=== PATIENT | female | born 1985 | race Caucasian/White ===

== ENCOUNTER 2020-02-10 15:27 | Emergency (ER) | payer OTHER, SELFPAY ==
--- NOTE | 2020-02-10 15:37 | ED.GENADULT ---
HPI - General Adult General Chief complaint: Skin/Abscess/Foreign Body Stated complaint: Cyst on back Time Seen by Provider: 02/10/20 15:37 Source: patient Mode of arrival: ambulatory Limitations: no limitations History of Present Illness HPI narrative: 34-year-old female patient presents to the [facility] with complaints of a wound to the left side of the back. Patient states she has had a cyst to this area for couple of years now however about a week ago she got hit with a softball and now having increased pain and pressure to the area. Denies any fevers, body aches or chills. Related Data Allergies Allergy/AdvReac Type Severity Reaction Status Date / Time No Known Allergies Allergy Verified 02/10/20 15:30 Review of Systems Review of Systems: Narrative: CONSTITUTIONAL: Denies fever, chills, or sweats. EYES: Denies visual changes, redness, or discharge. ENT: Denies rhinorrhea, congestion, sore throat, or otalgia. CARDIOVASCULAR: Denies chest pain, palpitations, or edema. RESPIRATORY: Denies cough or dyspnea. GASTROINTESTINAL: Denies abdominal pain, nausea, vomiting, or diarrhea. GENITOURINARY: Denies dysuria or hematuria. SKIN: Denies rash or itching. Positive wound to left upper back x1 week MUSCULOSKELETAL: Denies back pain, joint pain, or myalgia. NEUROLOGIC: Denies headache, numbness, or weakness. PSYCHIATRIC: Denies anxiety or depression. PMFSH Comments At the time of my signature I agree with nursing past medical history, surgical, social, and family history. There is no relevant family history pertinent to the presenting complaint. Exam Narrative: Exam Narrative: GENERAL: Well-appearing, well-nourished, and in no acute distress. HEAD: Normocephalic, atraumatic. EYES: PERRLA and EOMI. ENT: Nares clear, no rhinorrhea or epistaxis. Mucous membranes moist. NECK: Supple. No lymphadenopathy CHEST: Clear to auscultation. No respiratory distress. HEART: Regular rate and rhythm. No murmur heard. Normal peripheral pulses. ABDOMEN: Soft, nontender, nondistended, normal active bowel sounds. EXTREMITIES: Normal range of motion. No edema. SKIN: Warm, dry, no rash. Patient has approximately 3.5 cm cyst area to left upper back. Slightly warm and very slight fluctuant center. NEURO: No focal deficits. Alert and oriented x3. Course Vital Signs Vital signs: Vital Signs Temperature 37.3 C 02/10/20 15:38 Pulse Rate 70 02/10/20 15:38 Respiratory Rate 16 02/10/20 15:38 Blood Pressure 143/84 H 02/10/20 15:38 Pulse Oximetry 99 02/10/20 15:38 Temperature 37.3 C 02/10/20 15:38 Pulse Rate 70 02/10/20 15:38 Respiratory Rate 16 02/10/20 15:38 Blood Pressure 143/84 H 02/10/20 15:38 Pulse Oximetry 99 02/10/20 15:38 Vital signs reviewed. The patient has been informed that they may have pre-hypertension or Hypertension based on a BP reading in the department. I recommend that the patient call the primary care provider listed on their discharge instructions or a physician of their choice this week to arrange follow up for further evaluation of possible pre-hypertension or Hypertension Procedures Abscess I/D back: Date of Incision: 02/10/20 Time of Incision: 16:09 Side (if applicable): left Sedation/analgesia: none Local Anesthetic: lidocaine 1% Amount of anesthesia used (mL): 1 Technique: incised with #11 blade Irrigation: Yes Packing used?: none I&D Results: Pus Abcess I&D Additional Comments: The procedure was explained and verbal consent is obtained. The wound was anesthetized with 1ml of 1% lidocaine with good anesthesia. Sterile drape and prep are done. The fluctuant center was incised with #11 blade scalpel. A moderate amount of exudate was expressed. The wound was probed for loculated area and irrigated with normal saline. Wound was left open. Dressing was applied. The patient tolerated the procedure well. Medical Decision M
[2020-02-10 15:38] VITALS: BP 143/84; PULSE 70; RESP 16; TEMP 37.3; O2SAT 99
--- NOTE | 2020-02-10 16:00 | PC.NURSE ---
manpower development specialist manager in to do i and d at [phone]
== END 2020-02-10 16:17 | disposition home or self-care (01) ==
PROVIDERS: Emergency Provider Nurse Practitioner Family
DX: L02.212 Cutaneous abscess of back [any part, except buttock and flank] (principal)
CPT/HCPCS: 10060; 87070; 87075; 87205; 99203; G0463

== ENCOUNTER 2023-01-15 13:17 | Emergency (ER) | payer OTHER, SELFPAY | END 2023-01-15 14:13 | disposition home or self-care (01) | PROVIDERS: Emergency Provider Nurse Practitioner Family | DX: S71.111A Laceration without foreign body, right thigh, initial encounter (principal); W26.8XXA Contact with other sharp object(s), not elsewhere classified, initial encounter; Z23 Encounter for immunization | CPT/HCPCS: 12001; 90471; 90714; 99212; G0463 ==

== ENCOUNTER 2023-11-11 02:01 | Emergency (ER) | payer OTHER, SELFPAY ==
--- NOTE | ~2023-11-11 | CT_ITS ---
CT of the Abdomen and Pelvis: Indication: Abdominal pain Technique: 2.5 mm axial scans were obtained through the abdomen and pelvis following intravenous adm inistration of 100 cc of Omnipaque 350. Dose reduction technique was used on this scan by utilizing a utomated exposure control and iterative reconstruction technique. The dose-length product (DLP) was 1 065.04 mGy-cm. Findings: Scans through the lung bases are unremarkable. The liver, spleen, pancreas, adrenals and kidneys are within normal limits. Probable mild gallbladder wall thickening, nonspecific. No evidence of aortic aneurysm. No lymphadenopathy. No bowel obstruction or bowel wall thickening. There is no evidence to suggest acute appendicitis. Images through the pelvis were performed. Urinary bladder unremarkable. No adnexal mass evident. Trac e pelvic ascites present. Impression: Mild gallbladder wall thickening, nonspecific. Consider ultrasound to better assess for underlying ga llstones/acute cholecystitis. Trace pelvic ascites, nonspecific. Reviewed, dictated and finalized at [facility]. Impression: Mild gallbladder wall thickening, nonspecific. Consider ultrasound to better as sess for underlying gallstones/acute cholecystitis. Trace pelvic ascites, nonspecific.
[2023-11-11] MEDS: ONDANSETRON INJ 4 MG/2 ML VIAL IV PUSH (03:13)
[2023-11-11] MEDS: MORPHINE SULFATE (*CRX) 4 MG/ML INJ IV PUSH (03:13)
[2023-11-11] MEDS: SODIUM CHLORIDE 0.9% IV 1,000 ML 999 ML IV CONT (03:13)
[2023-11-11 03:20] LABS: Basophils Percent Auto 0.2 % (0.2-1.2); Eosinophils Absolute Auto 0.1 K/mm3 (0-0.3); Eosinophils Percent Auto 1.3 % (0-4.4); Hematocrit 43.3 % (37.0-47.0); Hemoglobin 14.8 g/dL (12.0-15.0); Immature Granulocyte Absolute 0.03 K/mm3 (0.00-0.031); Immature Granulocyte Percent A 0.3 % (0-0.5); Lymphocytes Absolute Auto 2.63 K/mm3 (0.9-3.2); Lymphocytes Percent Auto 29.4 % (18.3-44.2); Mean Corpuscular HGB Conc 34.2 g/dl (32-36); Mean Corpuscular Hemoglobin 30.5 pg (26-34); Mean Corpuscular Volume 89.3 fl (80-100); Mean Platelet Volume 10.3 fl (7.4-10.4); Monocytes Absolute Auto 0.5 K/mm3 (0.1-0.6); Monocytes Percent Auto 5.8 % (2.6-8.5); Neutrophils Absolute Auto 5.6 K/mm3 (1.3-6.7); Platelet Count Result 204 k/mm3 (150-375); Red Blood Count 4.85 M/mm3 (4.2-5.4); Red Cell Distribution Width 11.8 % (11.5-14.5)
[2023-11-11 03:22] LABS: Appearance Urine Clear (Clear); Bilirubin Urine Negative (Negative); Blood Urine Negative (Negative); Color Urine Yellow (Yellow); Glucose Urine UA Negative (Negative); Ketones Urine Negative (Negative); Leukocyte Esterase Ur Negative LEU/UL (Negative); Nitrate Urine Negative (Negative); Protein Urine Negative (Negative); Specific Grav Ur 1.006 (1.001-1.035); Urobilinogen Urine 0.2 mg/dL (<2.0); pH Urine 7.5 (5.0-9.0)
[2023-11-11 03:29] LABS: Add Urine Microscopic? NO
[2023-11-11 03:37] LABS: Alanine Aminotransferase 25 U/L (6-35); Albumin Level 4.6 g/dL (3.5-5.1); Alkaline Phosphatase 65 U/L (38-126); Anion Gap 5 mmol/L (4-12); Aspartate Amino Transferase 29 U/L (14-36); Bilirubin,Total 0.8 mg/dL (0.2-1.3); Blood Urea Nitrogen 15 mg/dL (7-17); Calcium 10.2 mg/dL (8.4-10.2); Carbon Dioxide 25 mmol/L (22-30); Chloride 106 mmol/L (98-107); Estimated CRCL calculation 80 ml/min; Estimated Glomerular Filt Rate > 60; Glucose 90 mg/dL (65-110); Lipase 56 U/L (23-300); Potassium 4.5 mmol/L (3.4-5.0); Sodium 136 mmol/L (137-145)
[2023-11-11 04:18] VITALS: BP 128/87; PULSE 77; RESP 16; O2SAT 100
--- NOTE | 2023-11-11 04:18 | ED.GENADULT ---
HPI - General Adult General Chief complaint: Abdominal Pain Stated complaint: abdominal pain Time Seen by Provider: 11/11/23 02:47 History of Present Illness HPI narrative: Patient had troponin presents emergency department with chief complaint of abdominal pain. The patient reports she is having pain in the epigastric and right upper quadrant pain the patient reports she is having nausea and reports that she has not had any vomiting. The patient reports he has had several episodes of this before in the past but usually goes away on its own. Patient reports no prior upper abdominal surgery Related Data Allergies Allergy/AdvReac Type Severity Reaction Status Date / Time No Known Allergies Allergy Verified 11/11/23 02:05 Review of Systems Review of Systems: A 10 system review of systems was completed on the patient and is negative except for what is stated in the HPI. Nursing and ancillary documentation was reviewed. Exam Narrative: GENERAL: Well-appearing, well-nourished, and in no acute distress. HEAD: Normocephalic, atraumatic. EYES: PERRLA and EOMI. ENT: Nares clear, no rhinorrhea or epistaxis. Mucous membranes moist. NECK: Supple. CHEST: Clear to auscultation. No respiratory distress. HEART: Regular rate and rhythm. No murmur heard. Normal peripheral pulses. ABDOMEN: Soft, tenderness palpation epigastric and right upper quadrant, nondistended, normal active bowel sounds. EXTREMITIES: Normal range of motion. No edema. SKIN: Warm, dry, no rash. NEURO: No focal deficits. Alert and oriented x3. PSYCH: Normal mood and affect. Course Vital Signs Vital signs: Vital Signs Pulse Rate 77 11/11/23 04:18 Respiratory Rate 16 11/11/23 04:18 Blood Pressure 128/87 11/11/23 04:18 Pulse Oximetry 100 11/11/23 04:18 Pulse Rate 77 11/11/23 04:18 Respiratory Rate 16 11/11/23 04:18 Blood Pressure 128/87 11/11/23 04:18 Pulse Oximetry 100 11/11/23 04:18 Medical Decision Making [facility] Narrative Medical decision making narrative: Differential diagnosis includes cholecystitis, pancreatitis, gastritis, viral syndrome, Laboratory studies showed a normal CBC CMP was within normal limits lipase is normal urinalysis was within normal limits CT scan of the abdomen pelvis showed Mild gallbladder wall thickening, nonspecific. Consider ultrasound to better assess for underlying gallstones/acute cholecystitis. Trace pelvic ascites, nonspecific. Mild gallbladder wall thickening, nonspecific. Consider ultrasound to better assess for underlying gallstones/acute cholecystitis. Trace pelvic ascites, nonspecific. The patient is currently asymptomatic patient was instructed to a low-fat no fat diet patient follow-up primary care and may be a gallbladder ultrasound as an outpatient Vital Signs Vital Signs: Vital Signs Pulse Rate 77 11/11/23 04:18 Respiratory Rate 16 11/11/23 04:18 Blood Pressure 128/87 11/11/23 04:18 Pulse Oximetry 100 11/11/23 04:18 Pulse Rate 77 11/11/23 04:18 Respiratory Rate 16 11/11/23 04:18 Blood Pressure 128/87 11/11/23 04:18 Pulse Oximetry 100 11/11/23 04:18 Lab Data 11/11/23 03:15 11/11/23 03:15 Labs: Lab Results 11/11/23 Range/Units 03:15 WBC 9.0 (4.5-10.0) K/mm3 RBC 4.85 (4.2-5.4) M/mm3 Hgb 14.8 (12.0-15.0) g/dL Hct 43.3 (37.0-47.0) % MCV 89.3 (80-100) fl MCH 30.5 (26-34) pg MCHC 34.2 (32-36) g/dl RDW 11.8 (11.5-14.5) % Plt Count 204 (150-375) k/mm3 MPV 10.3 (7.4-10.4) fl Immature Gran % (Auto) 0.3 (0-0.5) % Neut % (Auto) 63.0 (45.5-73.1) % Lymph % (Auto) 29.4 (18.3-44.2) % Clark % (Auto) 5.8 (2.6-8.5) % Eos % (Auto) 1.3 (0-4.4) % Baso % (Auto) 0.2 (0.2-1.2) % Lymph # (Auto) 2.63 (0.9-3.2) K/mm3 Clark # (Auto) 0.5 (0.1-0.6) K/mm3 Eos # (Auto) 0.1 (0-0.3) K/mm3 Baso # (Auto) 0.0 (0.0-0.1) K/mm3 Abs Immat Gran (auto) 0.03 (0.00
--- NOTE | 2023-11-11 04:19 | PC.NURSE ---
Pt feeling much better after IV pain medication and is pain free at this time. Will continue to monitor.
[2023-11-11 06:27] VITALS: BP 126/76; PULSE 74; RESP 18; O2SAT 100
== END 2023-11-11 06:28 | disposition home or self-care (01) ==
PROVIDERS: Emergency Provider Emergency Medicine
DX: K80.20 Calculus of gallbladder without cholecystitis without obstruction (principal)
CPT/HCPCS: 36415; 74177; 80053; 81003; 81025; 83690; 85025; 96361; 96374; 96375; 99284; J2270; J2405; J7030; Q9967

== ENCOUNTER 2023-11-28 07:44 | Outpatient (CLI) | payer OTHER, SELFPAY ==
--- NOTE | ~2023-11-28 | NM_ITS ---
EXAMINATION: NM hepatobiliary wo pharm DATE: 11/28/2023 10:40 CDT INDICATION: Generalized abdominal pain COMPARISON: None. TECHNIQUE: 5 mCi Tc-99m mebrofenin (Choletec) was administered intravenously. Scintigraphic images o f the abdomen were obtained for one hour. At the 1 hour time point, the patient drank 8 oz Ensure, an d imaging was continued for 60 minutes. Gallbladder ejection fraction was calculated by the technolog ist. FINDINGS: There is normal clearance of radiotracer from the blood pool. There is homogeneous tracer u ptake by the liver. Activity progresses to the bowel and gallbladder. The gallbladder ejection fract ion is 59%. Note that with this technique, normal GBEF >= 33%. IMPRESSION: 1. Normal hepatobiliary scan. Reviewed, dictated and finalized at location B.
== END 2023-11-28 07:45 | disposition home or self-care (01) ==
PROVIDERS: PCP Emergency Medicine; Visit Provider Emergency Medicine
DX: R10.84 Generalized abdominal pain (principal)
CPT/HCPCS: 78226; A9537

== ENCOUNTER 2023-12-09 08:51 | Outpatient (CLI) | payer OTHER, SELFPAY ==
--- NOTE | ~2023-12-09 | XR_ITS ---
EXAMINATION: XR UGI wo kub DATE: 12/09/2023 09:33 INDICATION: Midline upper abdominal pain TECHNIQUE: The patient drank thick barium, gas-producing crystals, and thin barium. A total of 483 fl uoroscopic images of the esophagus, stomach, and proximal small bowel were obtained. Fluoroscopy expo sure time was 1.7 minutes. Total DAP was 14.787 Gycm^2. COMPARISON: None. FINDINGS: The esophagus is normal without mass or stricture. Esophageal motility is normal. There is no hiatal hernia. There was a single episode of gastroesophageal reflux of a small amount of contrast into the mid esophagus with provocative maneuvers. The stomach and proximal small bowel are normal. IMPRESSION: 1. Single episode of gastroesophageal reflux with provocative maneuvers. Otherwise normal study with no hiatal hernia. Reviewed, dictated and finalized at location A. IMPRESSION: 1. Single episode of gastroesophageal reflux with provocative maneuvers. Otherw ise normal study with no hiatal hernia.
== END 2023-12-09 08:52 | disposition home or self-care (01) ==
PROVIDERS: PCP Emergency Medicine; Visit Provider Emergency Medicine
DX: K21.9 Gastro-esophageal reflux disease without esophagitis (principal)
CPT/HCPCS: 74240

== ENCOUNTER 2024-05-19 02:15 | Emergency (ER) | payer OTHER, SELFPAY ==
[2024-05-19] VITALS (7 sets, daily range): BP systolic 106–131; BP diastolic 78–91; PULSE 60–82; RESP 13–19; TEMP 36.7; O2SAT 97–100
--- NOTE | ~2024-05-19 | US_ITS ---
EXAMINATION: US right upper quadrant DATE: 05/19/2024 07:36 INDICATION: Right upper quadrant abdominal pain TECHNIQUE: Multiple grayscale and Doppler ultrasound images of the abdomen were obtained. COMPARISON: None FINDINGS: The pancreatic head and body are normal in appearance. The pancreatic tail is not visualized. Liver has normal echogenicity and contour, with a smooth surface. No liver lesion identified. No intrahepat ic biliary duct dilation suspected. Portal venous flow was seen in the hepatopetal, normal direction and has normal Doppler waveform. Wall echo shadow complex with multiple shadowing gallstones filling the decompressed gallbladder. There is gallbladder wall thickening measuring 5-6 mm in thickness. The common bile duct measures 1-2 mm in diameter which is normal. Sonographic Garcia sign was reported a s negative by the tire balancer. IMPRESSION: 1. Gallbladder decompressed around multiple gallstones with thickened wall but negative sonographic M urphy sign which could be due to cholecystitis, more likely chronic than acute, liver disease, right heart failure or other cause of generalized edema. Could consider HIDA scan for further evaluation as clinically indicated. Reviewed, dictated and finalized at location A. IMPRESSION: 1. Gallbladder decompressed around multiple gallstones with thickened wall but negative sonographic Garcia sign which could be due to cholecystitis, more like ly chronic than acute, liver disease, right heart failure or other cause of gen eralized edema. Could consider HIDA scan for further evaluation as clinically i ndicated.
--- NOTE | ~2024-05-19 | CT_ITS ---
CT of the Abdomen and Pelvis: Indication: Abdominal pain Technique: 2.5 mm axial scans were obtained through the abdomen and pelvis following intravenous adm inistration of 100 cc of Omnipaque 350. Dose reduction technique was used on this scan by utilizing a utomated exposure control and iterative reconstruction technique. The dose-length product (DLP) was 1 414.46 mGy-cm. COMPARISON: 11/11/2023 Findings: Scans through the lung bases are unremarkable. The liver, spleen, pancreas, adrenals and kidneys are within normal limits. Suspected minimal gallbla dder wall thickening. No evidence of aortic aneurysm. No lymphadenopathy. No bowel obstruction or bowel wall thickening. There is no evidence to suggest acute appendicitis. Images through the pelvis were performed. Urinary bladder unremarkable. No adnexal mass seen. No asci shun. Impression: Suspected minimal gallbladder wall thickening. Consider acute cholecystitis. Consider ultrasound and/ or HIDA scan to further evaluate for gallbladder pathology. Reviewed, dictated and finalized at location . Impression: Suspected minimal gallbladder wall thickening. Consider acute cholecystitis. Co nsider ultrasound and/or HIDA scan to further evaluate for gallbladder patholog y.
--- NOTE | 2024-05-19 02:20 | ED.ABDPAIN ---
HPI - Abdominal Pain General Chief Complaint: Abdominal Pain <Evelia Camarillo MD - Last Filed: 05/19/24 23:12> Stated Complaint: abdominal pain <Evelia Camarillo MD - Last Filed: 05/19/24 23:12> Time Seen by Provider: 05/19/24 02:17 <Evelia Camarillo MD - Last Filed: 05/19/24 23:12> History of Present Illness HPI narrative: Patient is a 38-year-old female who presents to the emergency department this morning complaining of right upper quadrant abdominal pain radiating to her back. Patient admits that she was seen our facility back in November for similar findings and at that time she was informed that her symptoms are likely due to gallbladder disease. Patient was instructed to follow-up with GI and states that she has but has not had a gallbladder ultrasound performed yet, patient states that she finally got 1 scheduled for next week. Patient states that last night she had [place] food for dinner and at about 8:30 p.m. she started to have pain in her right upper quadrant. Pain has persisted since then so far patient finally decided to come to the emergency department for evaluation. Admits to nausea but denies any vomiting episodes. Denies any fevers or chills at home. No additional symptoms or concerns at this time. <Evelia Camarillo MD - Last Filed: 05/19/24 23:12> Related Data Allergies/Adverse Reactions: Allergies Allergy/AdvReac Type Severity Reaction Status Date / Time No Known Allergies Allergy Verified 05/19/24 02:17 <Evelia Camarillo MD - Last Filed: 05/19/24 23:12> Review of Systems Review of Systems: All systems are reviewed and are negative unless stated otherwise in the HPI. <Evelia Camarillo MD - Last Filed: 05/19/24 23:12> Exam Narrative: General: Alert, awake, afebrile, in no acute distress. HEENT: PERRL, no rhinorrhea, no post nasal drip, oropharynx clear. Cardiovascular: Regular rate and rhythm, no murmurs, rubs or gallops, no peripheral edema. Respiratory: Clear to auscultation bilaterally, no tachypnea, no wheezing, no rhonchi, no rubs, no respiratory distress. Abdomen: Soft, no tenderness to palpation over the RUQ, negative Garcia's, nondistended, no rebound, no guarding, no peritoneal signs. Musculoskeletal: No joint swelling or deformity, normal muscle tone. Skin: No rashes or petechia, no signs of infection. Neurological: Alert and oriented to person, place, and time. Follows all commands. No focal deficits, speech is clear and fluent. <Evelia Camarillo MD - Last Filed: 05/19/24 23:12> Course Course Emergency Course: patient resting comfortably. Informed of imaging results. Discussed case with General surgery. Discharge home with pain and nausea control. No antibiotics. Needs a follow-up to then have her gallbladder removed. <Manuelito Virk MD - Last Filed: 05/19/24 10:58> Vital Signs Vital signs: Vital Signs Temperature 98.1 F 05/19/24 02:24 Pulse Rate 73 05/19/24 02:24 Respiratory Rate 18 05/19/24 02:24 Blood Pressure 131/91 H 05/19/24 02:24 Pulse Oximetry 98 05/19/24 02:24 Oxygen Delivery Room Air 05/19/24 02:24 Temperature 98.1 F 05/19/24 02:24 Pulse Rate 82 05/19/24 11:03 Respiratory Rate 18 05/19/24 11:03 Blood Pressure 126/82 05/19/24 11:03 Pulse Oximetry 98 05/19/24 11:03 Oxygen Delivery Room Air 05/19/24 02:24 <Evelia Camarillo MD - Last Filed: 05/19/24 23:12> Vital Signs Temperature 98.1 F 05/19/24 02:24 Pulse Rate 73 05/19/24 02:24 Respiratory Rate 18 05/19/24 02:24 Blood Pressure 131/91 H 05/19/24 02:24 Pulse Oximetry 98 05/19/24 02:24 Oxygen Delivery Room Air 05/19/24 02:24 Temperature 98.1 F 05/19/24 02:24 Pulse Rate 82 05/19/24 11:03 Respiratory Rate 18 05/19/24 11:03 Blood Pressure 126/82 05/19/24 11:03 Pulse Oximetry 98 05/19/24 11:03 Oxygen Delivery Room Air 05/19/24 02:24 <Manuelito Virk MD - [place]
[2024-05-19 02:40] LABS: Add Urine Microscopic? NO; Appearance Urine Clear (Clear); Bilirubin Urine Negative (Negative); Blood Urine Negative (Negative); Color Urine Yellow (Yellow); Glucose Urine UA Negative (Negative); Ketones Urine Negative (Negative); Leukocyte Esterase Ur Negative LEU/UL (Negative); Nitrate Urine Negative (Negative); Protein Urine Negative (Negative); Specific Grav Ur 1.021 (1.001-1.035); Urobilinogen Urine 0.2 mg/dL (<2.0)
[2024-05-19 02:41] LABS: BEDSIDEPREGUCG Negative (Negative)
[2024-05-19 02:41] LABS: Basophils Percent Auto 0.4 % (0.2-1.2); Eosinophils Absolute Auto 0.2 K/mm3 (0-0.3); Eosinophils Percent Auto 2.3 % (0-4.4); Hematocrit 40.3 % (37.0-47.0); Immature Granulocyte Absolute 0.02 K/mm3 (0.00-0.031); Immature Granulocyte Percent A 0.3 % (0-0.5); Lymphocytes Percent Auto 42.6 % (18.3-44.2); Mean Corpuscular HGB Conc 34.7 g/dl (32-36); Mean Corpuscular Hemoglobin 31.3 pg (26-34); Mean Corpuscular Volume 90.2 fl (80-100); Monocytes Absolute Auto 0.5 K/mm3 (0.1-0.6); Neutrophils Absolute Auto 3.2 K/mm3 (1.3-6.7); Neutrophils Percent Auto 47.4 % (45.5-73.1); Platelet Count Result 228 k/mm3 (150-375); Red Blood Count 4.47 M/mm3 (4.2-5.4); Red Cell Distribution Width 11.9 % (11.5-14.5); White Blood Count 6.8 K/mm3 (4.5-10.0)
[2024-05-19] MEDS: MORPHINE SULFATE (*CRX) 4 MG/ML INJ IV PUSH (02:42)
[2024-05-19] MEDS: SODIUM CHLORIDE 0.9% IV 1,000 ML 999 ML IV CONT (02:42)
[2024-05-19] MEDS: ONDANSETRON INJ 4 MG/2 ML VIAL IV PUSH (02:42)
[2024-05-19 03:00] LABS: Alanine Aminotransferase 31 U/L (6-35); Albumin Level 4.2 g/dL (3.5-5.1); Alkaline Phosphatase 94 U/L (38-126); Anion Gap 10 mmol/L (4-12); Aspartate Amino Transferase 30 U/L (14-36); Bilirubin,Total 0.4 mg/dL (0.2-1.3); Blood Urea Nitrogen 11 mg/dL (7-17); Calcium 9.4 mg/dL (8.4-10.2); Carbon Dioxide 22 mmol/L (22-30); Chloride 105 mmol/L (98-107); Estimated CRCL calculation 81 ml/min; Estimated Glomerular Filt Rate > 60; Glucose 106 mg/dL (65-110); Lipase 165 U/L (23-300); Magnesium 1.9 mg/dL (1.6-2.3); Potassium 3.8 mmol/L (3.4-5.0); Sodium 137 mmol/L (137-145)
== END 2024-05-19 11:04 | disposition home or self-care (01) ==
PROVIDERS: Emergency Provider Emergency Medicine; PCP Emergency Medicine
DX: K80.50 Calculus of bile duct without cholangitis or cholecystitis without obstruction (principal)
CPT/HCPCS: 36415; 74177; 76705; 80053; 81003; 81025; 82248; 83690; 83735; 84703; 85025; 96361; 96374; 96375; 99284; J2270; J2405; J7030; Q9967

== ENCOUNTER 2024-06-03 07:56 | Outpatient (CLI) | payer OTHER, SELFPAY ==
[2024-06-03 08:49] LABS: Amylase 68 U/L (30-110)
== END 2024-06-03 07:57 | disposition home or self-care (01) ==
PROVIDERS: PCP Emergency Medicine; Visit Provider Surgery
DX: Z01.818 Encounter for other preprocedural examination (principal); K80.20 Calculus of gallbladder without cholecystitis without obstruction
CPT/HCPCS: 36415; 82150

== ENCOUNTER 2024-06-07 00:44 | Day surgery (SDC) | payer OTHER, SELFPAY ==
[2024-06-01 09:40] VITALS: BMI 32.7
--- NOTE | 2024-06-01 09:46 | PC.NURSE ---
Report to the Outpatient Waiting Room, entrance under the green pavilion located off [facility], at time _0930_ on date _[id number]_. Planned Procedure Time: _1130_.? Time changes happen often and if your time is changed the preop area will call you the afternoon before. - You and your visitor will be asked to self-screen and do not enter if you have any COVID symptoms. Please call surgeon if you need to reschedule. - A mask is optional within the hospital at this time. Patients may have clear liquids (water, carbonated beverages, clear teas, apple juice) until 3 hours prior to surgery with a maximum of 20 ounces. - No food from midnight until time of surgery and no smoking Take only the following medications with a SIP of water on the morning of surgery: __None DO NOT STOP ANY OF YOUR OTHER PRESCRIPTION MEDICATIONS PRIOR TO SURGERY EXCEPT THE FOLLOWING Medications to discontinue per physician __None Please no make-up, nail kazakh, hairspray, perfume, deodorant, or body powder the day of surgery.? No jewelry (including any body piercings) or valuables the day of surgery, leave them at home.? Please take a shower or bath the night before, or the morning of, surgery with an antibacterial soap.? Wear comfortable, loose fitting clothing.? - Jewelry must be removed prior to entering the operating room.? Rings and piercings that are not removed may be cut off. - The hospital will not accept responsibility for valuables.? - Please leave all valuables, including medications, at home the day of surgery. If you are going home after surgery, a licensed restaurant delivery driver must drive you home.? - NO public transportation without another adult if you receive anesthesia. - We recommend that an adult stay with you for 24 hours following discharge. - We also recommend that you do not drive, make important decision, drink alcoholic beverages, or take any drugs that were not prescribed by your health care provider for at least 24 hours after your discharge time. Follow any additional instructions given to you from your surgeon. Telephone instructions given to _Michelle_and asked if any additional questions and then verbalized understanding. Patient advised to call surgeon office or pre surgery nurse liaison [phone] if any additional questions.
[2024-06-07] VITALS (10 sets, daily range): BP systolic 92–130; BP diastolic 48–89; PULSE 71–92; RESP 14–20; TEMP 36.2; O2SAT 96–100; BMI 36.1
--- NOTE | 2024-06-07 10:18 | WPDANESEPPF ---
Anes - Initial Pre Proc Eval Procedure: Operation Date: 06/07/24 11:30 Proposed Procedures p Laparoscopic Cholecystectomy, Possible Open - Daniel Killian MD Date/Time: 06/07/24 10:18 Surgeon: Daniel Killian MD Pre Op Diagnosis: Symptomatic Cholelithiasis Patient Data Age: 38 Gender: F Height: 1.63 m Weight: 86.4 kg Allergies Allergy/AdvReac Type Severity Reaction Status Date / Time No Known Allergies Allergy Verified 06/01/24 09:39 Home Medications Medication Instructions Recorded Confirmed Type No Home Medications 05/27/24 06/01/24 History Patient hx anesthesia problems: none Family hx anesthesia problems: none Results Review: All pre-operative results and documents have been reviewed as part of the pre-operative evaluation. [facility] Past Medical History Medical History (Updated 05/26/24 @ 15:03 by Kimber Quintero [facility]) Migraine Family History Family History Other Heart disease Malignant neoplasm of prostate Skin cancer Social History Social History (Updated 05/26/24 @ 14:03 by Teresa Reyna CMA) Smoking status: Never smoker Alcohol intake: current Drinks per week: 3 Do You Feel Safe in your Home?: Yes Lack of Transportation: No Lack of Food: Never True Current Housing: I Have Housing Concerned About Future Housing: No Difficulty Paying Gas/Electric Bills: No Difficulty Paying for Meds: No Currently Unemployed: No Education: Bachelor's Degree Difficulty w/ Childcare or Family Care: No Living arrangements: with family Occupation/Education: occupation Spiritual care concerns: No Anes - Eval Final PreProcedure Day of Procedure 06/07/24 10:18 Patient weight: obese Heart: regular rate and rhythm Lungs: clear to auscultation Airway: Mallampati scale class II Neurological: alert and oriented Last oral intake: >/= 8 hours ASA classification: II Emergent: no Anesthetic plan: proceed Anesthesia type and monitoring: general ETT and standard monitoring Results Review: All pre-operative results and documents have been reviewed as part of the pre-operative evaluation. Informed Consent: The patient's anesthetic plan and its attendant risks and benefits were discussed with the patient/family/POA. Questions were solicited and answers provided to the satisfaction of the patient/family/POA.
[2024-06-07] MEDS: LACTATED RINGERS 1,000 ML 30 ML IV CONT ×2 (10:55→13:15)
--- NOTE | 2024-06-07 10:55 | WPDHPUPDATE1 ---
History and Physical Update Update Date/Time: 06/07/24 10:55 History and Physical has been reviewed, including an updated exam of the patient. There are NO changes in the patient's condition. Risks, benefits, and alternatives have been discussed and questions answered. Patient agrees to proceed with procedure.
[2024-06-07] MEDS: ACETAMINOPHEN 500 MG TABLET 1000 MG PO (11:02)
[2024-06-07] MEDS: KETOROLAC 15 MG/ML VIAL (*BKC) IV PUSH (11:03)
[2024-06-07] MEDS: LIDO 1%/EPINEPHRINE 1:100,000 50 ML VIAL 30 ML INFILTRATE (11:23)
[2024-06-07] MEDS: BUPivacaine HCL 0.5% 10 ML AMP 30 ML INFILTRATE (11:23)
[2024-06-07] MEDS: ceFAZolin 2 GM/D5W 50 ML 2 GM/50 ML BAG IVPB (11:23)
[2024-06-07 11:41] LABS: BEDSIDEPREGUCG Negative (Negative)
--- NOTE | 2024-06-07 13:11 | W.PM.PROC2 ---
Procedure Note - Detailed Date of Procedure 06/07/24 Pre-op Diagnosis Symptomatic Cholelithiasis Post-op Diagnosis Other (Chronic cholecystitis secondary to cholelithiasis) Procedure Performed Laparoscopic cholecystectomy Surgeon Daniel Killian MD Tablet Machine Operator Nathalia Hutchinson [facility] Anesthesia General Indications Patient is 38-year-old female who has been having intermittent right upper quadrant abdominal pain with a being especially worse after eating. She had 1 emergency room visit for the pain. Workup has included abdominal ultrasound which showed small gallstones and a contracted gallbladder appears that she has biliary colic from her gallstones. She presents now for an elective laparoscopic cholecystectomy. Findings Patient had a chronically inflamed gallbladder with mild gallbladder wall thickening there were some adhesions of the omentum to the gallbladder wall which were easily stripped down bluntly. There was no acute inflammation. Multiple gallstones palpated within the lumen of the gallbladder. No bile was spilled and no gallstones were spilled. Description of Procedure After informed consent was obtained patient was brought to the operating room where she was placed supine position and general endotracheal anesthesia was administered. The abdomen was then prepped and draped usual sterile fashion. A time-out was then performed correctly identifying the patient as well as procedure to be performed. She was given some perioperative IV antibiotics. I then entered the abdomen left upper quadrant utilizing a 5mm Optiview port. Once inside the abdomen insufflated to adequate pneumoperitoneum of 15mmHg of CO2. There were no adhesions around the umbilicus I placed a 5mm periumbilical trocar port as well as a 10mm epigastric trocar port and then 2 more 5mm right subcostal trocar ports all under direct visualization. I was then to hold the gallbladder at the dome with a laparoscopic grasper and elevated the gallbladder towards the right shoulder over the liver. I then stripped down the omental adhesions to the gallbladder wall until I could place a 2nd grasper on the infundibular gallbladder. I then continued to strip down the visceral peritoneum off of the infundibular gallbladder identified the cystic duct. The cystic duct was then dissected out circumferentially. The cystic artery was identified and dissected out circumferentially as well. There was a posterior and anterior branch. I then dissected the lower 3rd of the gallbladder off of the infundibulum until I had critical view. At this point I then placed 2 clips proximally cystic duct and 2 clips distally high on infundibular gallbladder. The cystic duct was then divided Endo Gina. The anterior branch of cystic artery was then clipped and divided. The posterior branch seem to go deep down towards the liver bed and so this was preserved without clipping. The gallbladder was then resected off the liver utilized electrocautery. There was no spillage of any bile or gallstones. Once the gallbladder was free from liver is placed into an Endo-Catch bag and brought out through the epigastric port site. I palpated the gallbladder multiple stones within the lumen of the gallbladder and the gallstones the gallbladder was sent to pathology for examination. I then irrigated out the right upper quadrant the abdomen the gallbladder fossa with sterile saline solution. Hemostasis was excellent. There is no evidence of bile leak. I then aspirated the fluid from the right upper quadrant the abdomen from the pelvis. I then removed all the trocar ports under direct visualization all port sites appeared hemostatic. I then allowed the abdomen decompressed. The 10mm epigastric trocar port fascial defect was then closed utilizing 0 Vicryl suture. The skin edges in all the port sites were then approximated utilizing a running subcuticular 4 Monocryl suture. The incisions were then cleaned then skin glue was applied. The patient tolerated the procedure well no complications. All sponges, needles, and instrument counts were correct at the end procedure. EBL was _10__cc. The patient was awakened and taken to recovery in stable and satisfactory condition. Implants None Estimated Blood Loss 10 Drains No Packing No Pathology Yes (Gallbladder and gallstones sent to pathology) Complications No immediate complications Condition Stable Disposition PACU [facility] Billing Surgery - Charge Forward: Surgery Billing
[2024-06-07] MEDS: ONDANSETRON INJ 4 MG/2 ML VIAL IV PUSH (13:31)
[2024-06-07] MEDS: fentaNYL CITRATE INJ (*CRX) 100 MCG/2 ML VIAL 25 MCG IV PUSH ×4 (13:42→14:11)
== END 2024-06-07 15:12 | disposition home or self-care (01) ==
PROVIDERS: PCP Emergency Medicine; Visit Provider Surgery
PROC: 0FT44ZZ Resection of Gallbladder, Percutaneous Endoscopic Approach (ICD-10-PCS; CPT 47562; principal; 2024-06-07 11:30)
DX: K80.10 Calculus of gallbladder with chronic cholecystitis without obstruction (principal); K66.0 Peritoneal adhesions (postprocedural) (postinfection); E66.9 Obesity, unspecified; Z68.36 Body mass index [BMI] 36.0-36.9, adult; Z84.0 Family history of diseases of the skin and subcutaneous tissue; Z80.42 Family history of malignant neoplasm of prostate; Z82.49 Family history of ischemic heart disease and other diseases of the circulatory system
CPT/HCPCS: 47562; 88304; A9270; J0690; J1100; J1885; J2003; J2004; J2250; J2371; J2405; J2704; J3010; J7030; J7120

== ENCOUNTER 2024-06-09 09:28 | Outpatient (CLI) | payer OTHER, SELFPAY ==
--- NOTE | ~2024-06-09 | CT_ITS ---
CT abdomen pelvis wo con Ordering provider: Daniel Killian MD History: 38 years Female with . severe abdomina pain s/p lap imani . Comparison: None. Technique: CT abdomen and pelvis without IV and without oral contrast. Automated exposure control and iterative reconstruction technique were employed. The dose-length product was 870.66 mGy-cm. Findings: VISUALIZED LOWER CHEST: Atelectatic changes in the right and left lung bases. UPPER ABDOMINAL ORGANS: Liver: Normal. Gallbladder: Status post cholecystectomy. Spleen: Normal. Stomach/duodenum: Normal. Pancreas: Normal. Adrenals: Normal. Kidneys: Normal. PELVIC ORGANS: The bladder is normal. Uterus: Normal. BOWEL AND MESENTERY: Colon: No evidence of diverticulitis. Fecal material is loaded in the colon. Normal appendix. Possibi lity of minimal fat stranding in the right lower quadrant is not excluded. Small Bowel: Normal. No obstruction. Peritoneum/mesentery: No free air. Minimal Free fluid is seen in the pelvis. No mesenteric lymphadeno norris. RETROPERITONEUM: Normal aorta. No retroperitoneal lymphadenopathy. MUSCULOSKELETAL: Superficial soft tissues: Small Fat containing umbilical hernia. Otherwise, The superficial soft tiss ues are normal. Bones: Normal spine. IMPRESSION: 1. No evidence of appendicitis, diverticulitis or intestinal obstruction. 2. Minimal fluid in the pelvis. 3. Constipation. 4. Possibility of minimal fat stranding in the right lower quadrant cannot be excluded. Reviewed, dictated and finalized at location A. ENT SUPPORT SPECIALIST
[2024-06-09 10:10] LABS: Basophils Percent Auto 0.3 % (0.2-1.2); Eosinophils Absolute Auto 0.1 K/mm3 (0-0.3); Eosinophils Percent Auto 0.7 % (0-4.4); Hematocrit 39.5 % (37.0-47.0); Hemoglobin 13.7 g/dL (12.0-15.0); Immature Granulocyte Absolute 0.02 K/mm3 (0.00-0.031); Immature Granulocyte Percent A 0.3 % (0-0.5); Lymphocytes Absolute Auto 2.09 K/mm3 (0.9-3.2); Lymphocytes Percent Auto 28.5 % (18.3-44.2); Mean Corpuscular HGB Conc 34.7 g/dl (32-36); Mean Corpuscular Hemoglobin 31.4 pg (26-34); Mean Corpuscular Volume 90.6 fl (80-100); Mean Platelet Volume 10.1 fl (7.4-10.4); Monocytes Absolute Auto 0.4 K/mm3 (0.1-0.6); Monocytes Percent Auto 5.9 % (2.6-8.5); Neutrophils Absolute Auto 4.7 K/mm3 (1.3-6.7); Neutrophils Percent Auto 64.3 % (45.5-73.1); Platelet Count Result 208 k/mm3 (150-375); Red Blood Count 4.36 M/mm3 (4.2-5.4); Red Cell Distribution Width 11.9 % (11.5-14.5); White Blood Count 7.3 K/mm3 (4.5-10.0)
[2024-06-09 10:26] LABS: Alanine Aminotransferase 58 U/L (6-35); Alkaline Phosphatase 63 U/L (38-126); Anion Gap 8 mmol/L (4-12); Aspartate Amino Transferase 57 U/L (14-36); Bilirubin,Total 0.8 mg/dL (0.2-1.3); Blood Urea Nitrogen 9 mg/dL (7-17); Calcium 8.7 mg/dL (8.4-10.2); Carbon Dioxide 22 mmol/L (22-30); Chloride 108 mmol/L (98-107); Estimated Glomerular Filt Rate > 60; Glucose 83 mg/dL (65-110); Sodium 138 mmol/L (137-145)
== END 2024-06-09 09:29 | disposition home or self-care (01) ==
LOC: ANHIMG 09:30
PROVIDERS: PCP Emergency Medicine; Visit Provider Surgery
DX: K59.00 Constipation, unspecified (principal); Z90.49 Acquired absence of other specified parts of digestive tract
CPT/HCPCS: 36415; 74176; 80053; 85025